=== PATIENT | female | born 1985 | race American Indian/Alaskan Native ===

== ENCOUNTER 2016-05-17 16:02 | Emergency (ER) | payer MEDICAID ==
[2016-05-17 17:24] VITALS: BP 120/66
[2016-05-17 19:09] LABS: Bacteria,Urine 1+ /HPF (Negative); Bilirubin,Urine NEG (Negative); Blood,Urine NEG (Negative); Ketones,Urine NEG (Negative); Leukocyte Esterase,Urine MOD (Negative); Mucus,Urine FEW /HPF; Nitrite,Urine NEG (Negative); Protein,Urine <15 mg/dL mg/dL (Negative); Urobilinogen,Urine < 2.0 mg/dL (<2.0)
--- NOTE | 2016-05-18 08:11 | ED Elopement Review ---
ED Pt Elopement review - Results review Lab results: Laboratory Tests 05/17/16 18:43 Urine Color Yellow Urine Turbidity Clear Urine pH 6.0 Ur Specific [place] 1.020 Urine Protein <15 mg/dl Urine Glucose (UA) Neg Urine Ketones Neg Urine Blood Neg Urine Nitrite Neg Urine Bilirubin Neg Urine Urobilinogen < 2.0 Ur Leukocyte Esterase Mod Urine WBC (Auto) 2.0 Urine RBC (Auto) 4.0 U Epithel Cells (Auto) 4.0 Urine Bacteria (Auto) 1+ Urine Mucus Few Urine HCG, Qual Negative - Call Back decision Pt Call Back Decision: No action required
== END 2016-05-17 18:11 | disposition left against medical advice (07) ==
LOC: ED 16:02
DX: R10.30 Lower abdominal pain, unspecified (principal); Z53.21 Procedure and treatment not carried out due to patient leaving prior to being seen by health care provider
CPT/HCPCS: 81001; 81025

== ENCOUNTER 2017-02-13 16:24 | Emergency (ER) | payer MEDICAID, OTHER ==
[2017-02-13 16:29] VITALS: BP 120/75
== END 2017-02-13 19:51 | disposition left against medical advice (07) ==
LOC: ED 16:24
DX: J02.9 Acute pharyngitis, unspecified (principal); Z53.21 Procedure and treatment not carried out due to patient leaving prior to being seen by health care provider

== ENCOUNTER 2017-10-21 04:10 | Emergency (ER) | payer SELFPAY ==
[2017-10-21 04:54] LABS: Hematocrit 35.1 % (30.3-42.9); Hemoglobin 11.6 gm/dl (10.1-14.3); Mean Corpuscular HGB Conc 33 % (30-34); Mean Corpuscular Hemoglobin 27 pg (28-32); Mean Corpuscular Volume 82 fl (79-97); Platelet Count 380 K/mm3 (140-440); Red Blood Count 4.28 M/mm3 (3.65-5.03); Red Cell Distribution Width 14.9 % (13.2-15.2)
[2017-10-21 04:55] LABS: Eosinophils % (Auto) 2.2 % (0.0-4.3); Lymphocytes % (Auto) 38.7 % (13.4-35.0); Monocytes % (Auto) 7.4 % (0.0-7.3)
[2017-10-21 04:56] LABS: Basophils % (Auto) 0.5 % (0.0-1.8); Eosinophils # (Auto) 0.2 K/mm3 (0.0-0.4); Lymphocytes # (Auto) 2.9 K/mm3 (1.2-5.4); Monocytes # (Auto) 0.6 K/mm3 (0.0-0.8)
[2017-10-21 06:15] LABS: Bilirubin,Urine NEG (Negative); Blood,Urine NEG (Negative); Color,Urine Yellow (Yellow); Mucus,Urine FEW /HPF; Protein,Urine <15 mg/dL mg/dL (Negative)
--- NOTE | 2017-10-21 06:22 | Ultrasound Report ---
FINAL REPORT EXAM: US OB < = 14 WEEKS FETUS HISTORY: vaginal bleeding TECHNIQUE: Transabdominal imaging was obtained of the pelvis with Doppler interrogation of the uterus FINDINGS: The uterus is anteverted measuring 13.2 cm x 7.5 cm x 9.8 cm. Within the uterus is a well-formed gestational sac which contains a yolk sac and pole. The crown-rump length of the pole is 32.7 mm corresponding to a 10 week 1 day IUP. The heart rate is 166 BPM. Adjacent to the gestational sac is a moderate sized subchorionic hemorrhage measuring 1.5 cm x 1.4 cm x 4.1 cm. Free fluid is not seen. The right ovary is normal size contour and echotexture measuring 4.1 cm x 1.7 cm x 1.7 cm. The left ovary is normal size contour and echotexture measuring 2.7 cm x 1.6 cm x 3.4 cm. IMPRESSION: Single viable IUP, 10 weeks 1 day. The heart rate is 166 BPM. Moderate size subchorionic hemorrhage measuring 1.5 cm x 1.4 cm x 4.1 cm. No evidence of free fluid. Normal-appearing ovaries.
[2017-10-21 06:23] VITALS: BP 109/63
--- NOTE | 2017-10-21 08:15 | Emergency Department Report ---
ED Female HPI - General Chief complaint: Vaginal Bleeding Stated complaint: CRAMPING/VAG BLEEDING Time Seen by Provider: 10/21/17 07:16 Source: patient Mode of arrival: Ambulatory Limitations: No Limitations - History of Present Illness Initial comments: 32-year-old female with LMP reported as 09/11/2017 presents to the hospitalist. The cramping and intermittent vaginal spotting 3 weeks. Patient states the blood is light and pink. She also is having white vaginal discharge without improvement after self treatment with [id number] antifungal suppositories. Patient now states vaginal discharge is malodorous and green in color. She denies fever, nausea, or vomiting. Positive test here which is a new diagnosis for the patient. This is her eighth and she has 3 living children and history of 4 miscarriages. She does not currently have a [employer] [employer] [employer] doctor. - Related Data Previous Rx's Medication Instructions Recorded Last Taken Type Doxylamine Succinate/Vit B6 1 each PO BID #30 tablet. 04/18/15 Unknown Rx [Toni Hubbard 10-10 mg Tablet] Miconazole Nitrate [Miconazole 7] 100 mg VG DAILY #7 supp.vag 10/21/17 Unknown Rx Vit-Fe Fumar-FA [ 1 tab PO QDAY #30 tablet 10/21/17 Unknown Rx Vitamin] metroNIDAZOLE [Flagyl] 500 mg PO Q12HR #14 tab 10/21/17 Unknown Rx Allergies Allergy/AdvReac Type Severity Reaction Status Date / Time No Known Allergies Allergy Verified 05/17/16 17:20 ED Review of Systems ROS: Stated complaint: CRAMPING/VAG BLEEDING Other details as noted in HPI Comment: All other systems reviewed and negative ED Past Medical Hx - Past Medical History Previous Medical History?: No Hx Hypertension: No Hx Congestive Heart Failure: No Hx Diabetes: No Hx Deep Vein Thrombosis: No Hx Sickle Cell Disease: No Hx Seizures: No Hx Asthma: No Hx COPD: No Hx HIV: No - Surgical History Past Surgical History?: Yes Additional Surgical History: d&c x 2 p miscarriages - Social History Smoking Status: Never Smoker Substance Use Type: None - Medications Home Medications: Home Medications Medication Instructions Recorded Confirmed Last Taken Type Doxylamine Succinate/Vit B6 1 each PO BID #30 tablet. 04/18/15 11/04/15 Unknown Rx [Toni Hubbard 10-10 mg Tablet] Miconazole Nitrate [Miconazole 7] 100 mg VG DAILY #7 supp.vag 10/21/17 Unknown Rx Vit-Fe Fumar-FA [ 1 tab PO QDAY #30 tablet 10/21/17 Unknown Rx Vitamin] metroNIDAZOLE [Flagyl] 500 mg PO Q12HR #14 tab 10/21/17 Unknown Rx ED Physical Exam - General Limitations: No Limitations - Other Other exam information: General: No limitations, patient is alert in no acute distress Head exam: Atraumatic, normocephalic Eyes exam: Normal appearance ENT: Moist mucous membrane Neck exam: Normal inspection, full range of motion, no meningismus nontender Respiratory exam: Clear to auscultation bilateral, no wheezes, rales, crackles Cardiovascular: Normal rate and rhythm, normal heart sounds Abdomen: Soft, nondistended, suprapubic tenderness, with normal bowel sounds, no rebound, or guarding : Malodorous vaginal discharge. No vaginal bleeding or spotting. No CMT or adnexal tenderness. Extremity: Full range of motion normal inspection no deformity Back: Normal Inspection, full range of motion, no tenderness Neurologic: Alert, oriented x3, cranial nerves intact, no motor or sensory deficit Psychiatric: normal affect, normal mood Skin: Warm, dry, intact ED Course Vital Signs 10/21/17 10/21/17 10/21/17 04:09 04:53 06:23 Temperature 98.0 F 98.2 F Pulse Rate 95 H 93 H Respiratory 20 16 16 Rate Blood Pressure 102/62 Blood Pressure 109/63 [Right] O2 Sat by Pulse 99 99 99 Oximetry ED Medical Decision Making - Lab Data Result diagrams: 10/21/17 04:20 Lab Results 10/21/17 10/21/17 10/21/17 Range/Units 04:20 04:20 04:20 WBC 7.6 (4.5-11.0) K/mm3 RBC 4.28 (3.65-5.03) M/mm3 Hgb 11.6 (10.1-14.3) gm/dl Hct 35.1 (30.3-42.9) % MCV 82 (79-97) fl MCH 27 L (28-32) pg MCHC 33 (30-34) % RDW 14.9 (13.2-15.2) % Plt Count 380 (140-440) K/mm3 Lymph % (Auto) 38.7 H (13.4-35.0) % Reeves % (Auto) 7.4 H (0.0-7.3) % Eos % (Auto) 2.2 (0.0-4.3) % Baso % (Auto) 0.5 (0.0-1.8) % Lymph # 2.9 (1.2-5.4) K/mm3 Reeves # 0.6 (0.0-0.8) K/mm3 Eos # 0.2 (0.0-0.4) K/mm3 Baso # 0.0 (0.0-0.1) K/mm3 Seg Neutrophils % 51.2 (40.0-70.0) % Seg Neutrophils # 3.9 (1.8-7.7) K/mm3 HCG, Quant 34352 H (0-4) mIU/mL Urine Color (Yellow) Urine Turbidity (Clear) Urine pH (5.0-7.0) Ur Specific [place] (1.003-1.030) Urine Protein (Negative) mg/dL Urine Glucose (UA) (Negative) mg/dL Urine Ketones (Negative) mg/dL Urine Blood (Negative) Urine Nitrite (Negative) Urine Bilirubin (Negative) Urine Urobilinogen (<2.0) mg/dL Ur Leukocyte Esterase (Negative) Urine WBC (Auto) (0.0-6.0) /HPF Urine RBC (Auto) (0.0-6.0) /HPF U Epithel Cells (Auto) (0-13.0) /HPF Urine Mucus /HPF Blood Type B POSITIVE Antibody Screen Negative 10/21/17 Range/Units 05:55 WBC (4.5-11.0) K/mm3 RBC (3.65-5.03) M/mm3 Hgb (10.1-14.3) gm/dl Hct (30.3-42.9) % MCV (79-97) fl MCH (28-32) pg MCHC (30-34) % RDW (13.2-15.2) % Plt Count (140-440) K/mm3 Lymph % (Auto) (13.4-35.0) % Reeves % (Auto) (0.0-7.3) % Eos % (Auto) (0.0-4.3) % Baso % (Auto) (0.0-1.8) % Lymph # (1.2-5.4) K/mm3 Reeves # (0.0-0.8) K/mm3 Eos # (0.0-0.4) K/mm3 Baso # (0.0-0.1) K/mm3 Seg Neutrophils % (40.0-70.0) % Seg Neutrophils # (1.8-7.7) K/mm3 HCG, Quant (0-4) mIU/mL Urine Color Yellow (Yellow) Urine Turbidity Clear (Clear) Urine pH 5.0 (5.0-7.0) Ur Specific [place] 1.028 (1.003-1.030) Urine Protein <15 mg/dl (Negative) mg/dL Urine Glucose (UA) Neg (Negative) mg/dL Urine Ketones Tr (Negative) mg/dL Urine Blood Neg (Negative) Urine Nitrite Neg (Negative) Urine Bilirubin Neg (Negative) Urine Urobilinogen 2.0 (<2.0) mg/dL Ur Leukocyte Esterase Neg (Negative) Urine WBC (Auto) 2.0 (0.0-6.0) /HPF Urine RBC (Auto) 2.0 (0.0-6.0) /HPF U Epithel Cells (Auto) 6.0 (0-13.0) /HPF Urine Mucus Few /HPF Blood Type Antibody Screen - Radiology Data Radiology results: report reviewed FINAL REPORT EXAM: US OB lt; = 14 WEEKS FETUS HISTORY: vaginal bleeding TECHNIQUE: Transabdominal imaging was obtained of the pelvis with Doppler interrogation of the uterus FINDINGS: The uterus is anteverted measuring 13.2 cm x 7.5 cm x 9.8 cm. Within the uterus is a well-formed gestational sac which contains a yolk sac and pole. The crown-rump length of the pole is 32.7 mm corresponding to a 10 week 1 day IUP. The heart rate is 166 BPM. Adjacent to the gestational sac is a moderate sized subchorionic hemorrhage measuring 1.5 cm x 1.4 cm x 4.1 cm. Free fluid is not seen. The right ovary is normal size contour and echotexture measuring 4.1 cm x 1.7 cm x 1.7 cm. The left ovary is normal size contour and echotexture measuring 2.7 cm x 1.6 cm x 3.4 cm. IMPRESSION: Single viable IUP, 10 weeks 1 day. The heart rate is 166 BPM. Moderate size subchorionic hemorrhage measuring 1.5 cm x 1.4 cm x 4.1 cm. No evidence of free fluid. Normal-appearing ovaries. - Medical Decision Making Positive IUP with subchorionic hemorrhage : Pelvic rest recommended patient's blood type is B+ therefore RhoGAM is not necessary H&H normal UA negative for infection Vaginal exam suggestive of bacterial vaginosis and yeast. Patient to be treated appropriately Gonorrhea and chlamydia are pending [facility] [employer] [facility] follow-up will be in current Patient also given subchorionic hemorrhage information obtained from the Internet since we do not have a discharge summary specific for subchorionic hemorrhage - Differential Diagnosis vaginitis, cervicitis, ectopic , subchorionic hemorrhage, miscarri Critical Care Time: No Critical care attestation.: If time is entered above; I have spent that time in minutes in the direct care of this critically ill patient, excluding procedure time. ED Disposition Clinical Impression: 10 weeks gestation of , Subchorionic hematoma in first trimester, Bacterial vaginitis, Yeast infection Disposition: DC-01 TO HOME OR SELFCARE Is pt being admited?: No Does the pt Need Aspirin: No Condition: Stable Instructions: Bacterial Vaginosis (ED), Threatened Miscarriage (ED), Vulvovaginal Candidiasis (ED) Additional Instructions: Take the medication as prescribed. Take Tylenol as needed for pain. Recommend no sex until cleared by [facility] [employer] since this may cause cramping and increase bleeding. 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 Return if symptoms worsen as indicated by your discharge instructions. Your gonorrhea and chlamydia tests are pending and take approximately 3-4 days result. You may obtain results in medical records with a photo ID. You may also obtain results through the follow-up doctor office via medical record request. Prescriptions: metroNIDAZOLE [Flagyl] 500 mg PO Q12HR #14 tab Miconazole Nitrate [Miconazole 7] 100 mg VG DAILY #7 supp.vag Vit-Fe Fumar-FA [ Vitamin] 1 tab PO QDAY #30 tablet Referrals: PRIMARY CARE, [Primary Care Provider] - 3-5 Days Forms: STI Treatment and Prevention Time of Disposition: 08:20
== END 2017-10-21 08:37 | disposition home or self-care (01) ==
LOC: ED 04:10
DX: O43.891 Other placental disorders, first trimester (principal); O23.591 Infection of other part of genital tract in pregnancy, first trimester; N76.0 Acute vaginitis; B96.89 Other specified bacterial agents as the cause of diseases classified elsewhere; Z3A.10 10 weeks gestation of pregnancy
CPT/HCPCS: 36415; 76801; 81001; 84702; 85025; 86850; 86900; 86901; 87210; 87591

== ENCOUNTER 2018-05-14 09:20 | Inpatient (IN) | payer MEDICAID ==
[2018-05-14] MEDS ORDERED: BRETHINE SUB-Q PRN ×2 (12:03→14:17)
[2018-05-14] MEDS ORDERED: SUBLIMAZE IV PRN (12:03)
[2018-05-14] MEDS ORDERED: BRETHINE IVP PRN ×2 (12:03→14:17)
[2018-05-14] MEDS ORDERED: ZOFRAN IV PRN ×2 (12:03→21:33)
[2018-05-14] MEDS ORDERED: STADOL IV PRN (12:03)
[2018-05-14] MEDS ORDERED: MINERAL OIL PO PRN ×2 (12:35→14:17)
[2018-05-14] MEDS ORDERED: XYLOCAINE 2% INFILTRATI ONE ×2 (13:00→14:17)
[2018-05-14] MEDS ORDERED: PITOCin/NS 20 UNIT/1000ML DRIP 20 UNITS/1,000 ML BAG IV SCH ×3 (13:00→22:00)
[2018-05-14] MEDS ORDERED: PITOCin/NS 30 UNIT/500ML 30 UNITS/500 ML BAG IV SCH ×4 (13:00→15:00)
[2018-05-14] MEDS ORDERED: LACTATED RINGERS 1,000 ML IV SCH ×2 (13:00→15:00)
[2018-05-14 13:15] LABS: Hematocrit 29.1 % (30.3-42.9); Hemoglobin 9.9 gm/dl (10.1-14.3); Mean Corpuscular HGB Conc 34 % (30-34); Mean Corpuscular Volume 79 fl (79-97); Platelet Count 343 K/mm3 (140-440)
[2018-05-14] MEDS ORDERED: PHENERGAN PO PRN ×2 (14:17→21:33)
--- NOTE | 2018-05-14 14:24 | History and Physical Report ---
History of Present Illness Date of examination: 05/14/18 Date of admission: 05/14/18 09:20 Chief complaint: Induction of labor History of present illness: Pt is a 33 yo BF EDC 05/17/18; EGA 39 4/7 weeks presents for induction of labor due to Morbid Obesity per MELBA. She received care at [facility] since and co-managed by MELBA. records are available and GBS is Negative. Past History Past Medical History: other (Obesity) Past Surgical History: no surgical history Social history: no significant social history, single - Obstetrical History Expected Date of Delivery: 05/17/18 Actual Gestation: 39 Week(s) 4 Day(s) : 8 Medications and Allergies Allergies Allergy/AdvReac Type Severity Reaction Status Date / Time No Known Allergies Allergy Verified 05/17/16 17:20 Home Medications Medication Instructions Recorded Confirmed Last Taken Type Doxylamine Succinate/Vit B6 1 each PO BID #30 tablet. 04/18/15 11/04/15 Unknown Rx [Toni Hubbard 10-10 mg Tablet] Miconazole Nitrate [Miconazole 7] 100 mg VG DAILY #7 supp.vag 10/21/17 Unknown Rx Vit-Fe Fumar-FA [ 1 tab PO QDAY #30 tablet 10/21/17 Unknown Rx Vitamin] metroNIDAZOLE [Flagyl] 500 mg PO Q12HR #14 tab 10/21/17 Unknown Rx Active Meds: Active Medications Butorphanol Tartrate (Stadol) 2 mg IV Q2H PRN PRN Reason: Pain , Severe (7-10) Ephedrine Sulfate (Ephedrine Sulfate) 10 mg IV Q2M PRN PRN Reason: Hypotension Fentanyl (Sublimaze) 100 mcg IV Q2H PRN PRN Reason: Labor Pain Lactated Ringer's (Lactated Ringers) 1,000 mls @ 125 mls/hr IV DIRECT SATISH Last Admin: 05/14/18 13:20 Dose: 125 mls/hr Documented by: Oxytocin/Sodium Chloride (Pitocin/Ns 20 Unit/1000ml Drip) 20 units in 1,000 mls @ 125 mls/hr IV DIRECT SATISH Oxytocin/Sodium Chloride (Pitocin/Ns 30 Unit/500ml) 30 units in 500 mls @ 1 mls/hr IV TITR SATISH; Protocol Oxytocin/Sodium Chloride (Pitocin/Ns 30 Unit/500ml) 30 units in 500 mls @ 0 mls/hr IV TITR SATISH; Protocol Mineral Oil (Mineral Oil) 30 ml PO QHS PRN PRN Reason: Constipation Ondansetron HCl (Zofran) 4 mg IV Q8H PRN PRN Reason: Nausea And Vomiting Terbutaline Sulfate (Brethine) 0.25 mg SUB-Q ONCE PRN PRN Reason: Hyperstimulation/Hypertonicity Terbutaline Sulfate (Brethine) 0.25 mg IVP ONCE PRN PRN Reason: Hyperstimulation/Hypertonicity Review of Systems All systems: negative - Vital Signs Vital signs: Vital Signs Temp Pulse Resp BP 97.6 F 81 20 108/58 05/14/18 10:07 05/14/18 10:07 05/14/18 10:07 05/14/18 10:07 Temp Pulse Resp BP Pulse Ox 97.6 F 80 20 136/58 05/14/18 10:07 05/14/18 14:17 05/14/18 10:07 05/14/18 14:17 - Physical Exam Breasts: Positive: deferred Cardiovascular: Regular rate Lungs: Positive: Clear to auscultation Abdomen: Positive: normal appearance Genitourinary (Female): Positive: normal external genitalia Vagina: Positive: normal moisture Uterus: Positive: enlarged Extremities: Positive: normal - Obstetrical Uterine Contraction Monitor Mode: External Cervical Dilatation: 2 (per nurse) Cervical Effacement Percentage: 50 (per nurse) station: -3 Uterine Contraction Pattern: Irregular Uterine Tone Measurement Phase: Contraction Uterine Contraction Intensity: Mild Results Result Diagrams: 05/14/18 13:01 Abnormal lab results 05/14/18 Range/Units 13:01 Hgb 9.9 L (10.1-14.3) gm/dl Hct 29.1 L (30.3-42.9) % MCH 27 L (28-32) pg All other labs normal. Assessment and Plan - Patient Problems (1) 39 weeks gestation of Onset Date: 05/14/18 Current Visit: Yes Status: Acute Plan to address problem: A: IUP @ 39 4/7 weeks Morbid Obesity P: Admit to L&D for pitocin induction of labor
[2018-05-14] MEDS ORDERED: TUCKS PAD TP PRN (21:33)
[2018-05-14] MEDS ORDERED: DULCOLAX PR PRN (21:33)
[2018-05-14] MEDS ORDERED: PHENERGAN PR PRN (21:33)
[2018-05-14] MEDS ORDERED: MILK OF MAGNESIA PO PRN (21:33)
[2018-05-14] MEDS ORDERED: LANSINOH TP PRN (21:33)
[2018-05-14] MEDS ORDERED: TYLENOL PO PRN (21:33)
[2018-05-14] MEDS ORDERED: BENADRYL PO PRN (21:33)
--- NOTE | 2018-05-14 21:37 | Anesthesia Consultation ---
Anesthesia Consult and Med Hx - Airway Anesthetic Teeth Evaluation: Good ROM Head & Neck: Adequate Mental/Hyoid Distance: Adequate Mallampati Class: Class II Intubation Access Assessment: Probably Good - Pulmonary Exam CTA: Yes - Cardiac Exam Cardiac Exam: RRR - Pre-Operative Health Status ASA Pre-Surgery Classification: ASA3 Proposed Anesthetic Plan: Epidural - Pulmonary Hx Smoking: No Hx Asthma: No Hx Respiratory Symptoms: No COPD: No Home Oxygen Therapy: No Hx Pneumonia: No Hx Sleep Apnea: No - Cardiovascular System Hx Hypertension: No Hx Coronary Artery Disease: No Hx Heart Attack/AMI: No Hx Angina: No Hx Percutaneous Transluminal Coronary Angioplasty (PTCA): No Hx Cardia Arrhythmia: No Hx Pacemaker: No Hx Internal Defibrillator: No Hx Valvular Heart Disease: No Hx Heart Murmur: No Hx Peripheral Vascular Disease: No - Central Nervous System Hx Seizures: No Hx Psychiatric Problems: No - Gastrointestinal Hx Gastroesophageal Reflux Disease: Yes - Endocrine Hx Renal Disease: No Hx End Stage Renal Disease: No Hx Cirrhosis: No Hx Liver Disease: No Hx Hypothyroidism: No Hx Hyperthyroidism: No - Hematic Hx Anemia: No Hx Sickle Cell Disease: No - Other Systems Hx Alcohol Use: Yes (1 sine cooler2-3 weeks ago)
--- NOTE | 2018-05-14 21:39 | Procedure Note ---
OB Delivery Note - Delivery Date of Delivery: 05/14/18 Surgeon: BLACK FLOYD Estimated blood loss: 200cc - Vaginal Delivery presentation: vertex Delivery position: OA Delivery induction: oxytocin Delivery augmentation: rupture of membranes, pitocin Delivery monitor: external FHT, external uterine Route of delivery: Delivery placenta: spontaneous Delivery cord: 3 umbilical vessels Episiotomy: none Delivery laceration: none Anesthesia: epidural Delivery comments: Infant delivered OA and placed on Mom's chest for [id number] bonding and delayed cord clamping, cut by Dad - A at 1 minute: 8 at 5 minutes: 9 Gender: Female (3671gms)
[2018-05-14] MEDS ORDERED: NARCAN 2 MG/2 ML IV PRN (21:41)
[2018-05-14] MEDS ORDERED: SODIUM CHLORIDE FLUSH SYRINGE 10 ML IV NR (22:00)
[2018-05-15] MEDS: IBUPROFEN PO SCH ×4 (00:27→23:03)
[2018-05-15] MEDS: NORCO 5/325 PO PRN ×3 (00:28→23:03)
[2018-05-15] MEDS ORDERED: PITOCin/NS 20 UNIT/1000ML DRIP 20 UNITS/1,000 ML BAG IV SCH (01:00)
[2018-05-15] MEDS ORDERED: PRENATAL VITAMIN PO SCH (10:00)
[2018-05-15] MEDS: FEOSOL PO SCH ×2 (10:07→21:56)
[2018-05-15] MEDS: COLACE PO SCH ×2 (10:07→21:56)
[2018-05-15 10:28] LABS: Hematocrit 27.8 % (30.3-42.9); Hemoglobin 9.1 gm/dl (10.1-14.3)
--- NOTE | 2018-05-15 13:00 | Progress Note ---
Assessment and Plan - Patient Problems (1) 39 weeks gestation of Onset Date: 05/14/18 Current Visit: Yes Status: Resolved (2) (normal spontaneous vaginal delivery) Onset Date: 05/15/18 Current Visit: Yes Status: Resolved Plan to address problem: A: s/p - PPD #1 Doing well Asymptomatic anemia - stable P: May go home tomorrow. Subjective - Subjective Date of service: 05/15/18 Principal diagnosis: s/p - PPD #1 Interval history: Pt is feeling well without complaints. Bleeding improved. Patient reports: appetite normal, voiding normally, pain well controlled, flatus, ambulating normally, no dizzy ambulation, no nauseated [place]: doing well, nursing well, bottle feeding Objective - Vital Signs Latest vital signs: Vital Signs Temp Pulse Resp BP Pulse Ox 05/15/18 11:54 98.1 F 61 20 109/45 100 05/15/18 10:08 20 05/15/18 08:13 97.8 F 67 20 104/58 99 05/15/18 04:56 98.4 F 76 20 110/60 100 05/15/18 00:28 18 05/15/18 00:27 18 05/15/18 00:12 98.0 F 75 18 102/39 05/14/18 22:41 70 125/56 05/14/18 22:01 72 102/58 05/14/18 21:51 80 100/51 05/14/18 21:41 83 102/50 05/14/18 21:14 84 168/72 05/14/18 19:10 76 135/74 05/14/18 18:10 74 104/59 05/14/18 17:11 81 96/52 05/14/18 16:58 82 116/70 05/14/18 16:41 88 87/47 05/14/18 16:31 87 109/53 05/14/18 16:11 90 87/48 05/14/18 15:40 89 110/53 05/14/18 15:20 98.0 F 20 05/14/18 14:17 80 136/58 Intake and Output 05/14/18 05/15/18 05/15/18 22:59 06:59 14:59 Intake Total 27.333 480 120 Output Total 300 Balance 27.333 180 120 Intake: IV 27.333 PITOCin/NS 30 UNIT/500ML 27.333 30 units In 500 ml @ Per Protocol IV TITR SATISH Rx#: [id number] Oral 120 Intake, Free Water 480 Output: Urine 300 Void 300 Other: Total, Intake Amount 120 Total, Output Amount 300 # Voids Void 5 1 Estimated Blood Loss 200 - Exam Breasts: Present: deferred Abdomen: Present: normal appearance, soft Uterus: Present: normal, firm, fundal height below umbilicus Extremities: Present: normal - Labs Labs: Abnormal lab results 05/14/18 05/15/18 Range/Units 13:01 10:11 Hgb 9.9 L 9.1 L (10.1-14.3) gm/dl Hct 29.1 L 27.8 L (30.3-42.9) % MCH 27 L (28-32) pg Laboratory Tests 05/14/18 05/14/18 05/15/18 12:52 13:01 10:11 WBC 7.6 RBC 3.70 Hgb 9.9 L 9.1 L Hct 29.1 L 27.8 L MCV 79 MCH 27 L MCHC 34 RDW 15.0 Plt Count 343 Blood Type B POSITIVE Antibody Screen Negative
--- NOTE | 2018-05-15 13:08 | Discharge Summary ---
Providers - Providers Date of Admission: 05/14/18 09:20 Date of discharge: 05/16/18 Attending physician: BLACK FLOYD Primary care physician: ELISHA GILL MD Hospitalization Reason for admission: induction of labor, IUP at term, other (Morbid obesity) Delivery: Episiotomy: none Laceration: none Other procedures: none complications: none Discharge diagnosis: IUP at term delivered [place] baby: female Hospital course: Unremarkable. Condition at discharge: Good Disposition: DC-01 TO HOME OR SELFCARE - Discharge Diagnoses (1) 39 weeks gestation of Status: Resolved (2) (normal spontaneous vaginal delivery) Status: Resolved Plan - Discharge Medications Prescriptions: Ferrous Sulfate [Feosol 325 MG tab] 325 mg PO BID #60 tablet Ibuprofen [Motrin 600 MG tab] 600 mg PO Q6H #30 tablet Vit-Fe Fumar-FA [ Vitamin] 1 each PO QDAY #30 tablet - Provider Discharge Summary Activity: routine, no sex for 6 weeks, no heavy lifting 4 weeks, no strenuous exercise Diet: routine Instructions: routine Additional instructions: [] Smoking cessation referral if applicable(refer to patient education folder for contact #) [] Refer to [facility]'s [facility] Booklet Call your doctor immediately for: * Fever > 100.5 * Heavy vaginal bleeding ( >1 pad per hour) * Severe persistent headache * Shortness of breath * Reddened, hot, painful area to leg or breast * Drainage or odor from incision. * Keep incision clean and dry at all times and follow doctor's instructions regarding bathing/showering - Follow up plan Follow up: PRIMARY CARE, [Primary Care Provider] - 6 Weeks BLACK FLOYD MD [Staff Physician] - 6 Weeks AISHA CEDEÑO CNM [Advanced Practice Nurse] - 6 Weeks
[2018-05-15] MEDS ORDERED: M-M-R II VACCINE SUB-Q ONE (21:33)
[2018-05-15] MEDS ORDERED: BOOSTRIX IM ONE (21:33)
[2018-05-16] MEDS: IBUPROFEN PO SCH ×2 (05:13→16:21)
[2018-05-16] MEDS: NORCO 5/325 PO PRN ×2 (05:14→16:19)
[2018-05-16] MEDS ORDERED: BOOSTRIX IM ONE (06:00)
[2018-05-16 16:49] VITALS: BP 127/67
== END 2018-05-16 17:30 | disposition home or self-care (01) | DRG 775 ==
LOC: LD 09:20 → OB 23:54
PROVIDERS: ADMIT Obstetrics & Gynecology; ATTEND Obstetrics & Gynecology
PROC: 10E0XZZ Delivery of Products of Conception, External Approach (ICD-10-PCS; principal; 2018-05-14)
PROC: 3E033VJ Introduction of Other Hormone into Peripheral Vein, Percutaneous Approach (ICD-10-PCS; 2018-05-14)
PROC: 3E0R3BZ Introduction of Anesthetic Agent into Spinal Canal, Percutaneous Approach (ICD-10-PCS; 2018-05-14)
PROC: 00HU33Z Insertion of Infusion Device into Spinal Canal, Percutaneous Approach (ICD-10-PCS; 2018-05-14)
PROC: 3E0234Z Introduction of Serum, Toxoid and Vaccine into Muscle, Percutaneous Approach (ICD-10-PCS; 2018-05-15)
DX: O99.214 Obesity complicating childbirth (principal); Z37.0 Single live birth; O99.62 Diseases of the digestive system complicating childbirth; K21.9 Gastro-esophageal reflux disease without esophagitis; E66.01 Morbid (severe) obesity due to excess calories; Z3A.39 39 weeks gestation of pregnancy; Z23 Encounter for immunization; O99.02 Anemia complicating childbirth; D64.9 Anemia, unspecified
CPT/HCPCS: 36415; 85014; 85018; 85027; 86592; 86850; 86900; 86901; 90471; 90715; G0378; J2590; J3010; J7120

== ENCOUNTER 2019-01-05 20:51 | Emergency (ER) | payer MEDICAID ==
--- NOTE | 2019-01-05 21:21 | Emergency Department Report ---
Blank Doc - Documentation Documentation: 33-year-old female that presents with fall with pelvic pain and some vaginal b leeding. Denies any other trauma or injuries. This initial assessment/diagnostic orders/clinical plan/treatment(s) is/are subject to change based on patient's health status, clinical progression and re- assessment by fellow clinical providers in the ED. Further treatment and workup at subsequent clinical providers discretion. Patient/guardians urged not to elope from the ED as their condition may be serious if not clinically assessed and managed. Initial orders include: 1- Patient sent to [facility] for further evaluation and treatment 2- UA 3- labs 4- US OB
[2019-01-05 21:49] LABS: Bacteria,Urine 1+ /HPF (Negative); Bilirubin,Urine NEG (Negative); Blood,Urine NEG (Negative); Color,Urine Yellow (Yellow); Mucus,Urine FEW /HPF; Protein,Urine <15 mg/dL mg/dL (Negative); Urobilinogen,Urine < 2.0 mg/dL (<2.0)
[2019-01-05 21:54] LABS: Basophils # (Auto) 0.1 K/mm3 (0.0-0.1); Basophils % (Auto) 0.7 % (0.0-1.8); Eosinophils # (Auto) 0.2 K/mm3 (0.0-0.4); Eosinophils % (Auto) 2.3 % (0.0-4.3); Hematocrit 33.2 % (30.3-42.9); Hemoglobin 11.1 gm/dl (10.1-14.3); Lymphocytes # (Auto) 1.7 K/mm3 (1.2-5.4); Lymphocytes % (Auto) 22.7 % (13.4-35.0); Mean Corpuscular HGB Conc 33 % (30-34); Mean Corpuscular Volume 82 fl (79-97); Monocytes # (Auto) 0.4 K/mm3 (0.0-0.8); Monocytes % (Auto) 5.5 % (0.0-7.3); Platelet Count 340 K/mm3 (140-440); Red Blood Count 4.06 M/mm3 (3.65-5.03); Red Cell Distribution Width 15.3 % (13.2-15.2)
--- NOTE | 2019-01-05 23:15 | Ultrasound Report ---
OB ultrasound FINDINGS: Single fetus is identified in transverse presentation with head to the maternal left. heart rate is 152 bpm. Placenta is anterior. Cervix measures 5.4 cm in length and is closed. Appropr iate measurements reveal an MA of 17 weeks 1 day for an DEMAR of 06/14/2019. This correlates well with t he clinical dates. Amniotic fluid volume appears adequate. No gross anomalies are seen. No abnormalit y demonstrated. Signer Name: Luan Eaton MD Signed: 01/05/2019 11:11 PM Workstation Name: [id number]
--- NOTE | 2019-01-06 00:30 | Emergency Department Report ---
ED Abdominal Pain HPI - General Chief Complaint: Fall Stated Complaint: FALL,16 WKS PREG,SPOTTING BLOOD Time Seen by Provider: 01/05/19 21:20 Source: patient Mode of arrival: Ambulatory Limitations: No Limitations - History of Present Illness Initial Comments: Patient's a 33-year-old -Algerian female 17 weeks' , pt is G 9, G 4, A4. Patient states she slipped and fell stepping out of the shower today. there was no loc no back or neck pain, however she did start to experience some abdominal cramping and saw pink to toilet paper after voiding. There is no vaginal bleeding at this time, there is intermittent abdominal cramping. Symptom s are exacerbated by movement, symptoms are relieved by rest. pt states she justs wants to make sure baby is ok. Complaint: abdominal pain Onset/Timin -: hour(s) Location: LLQ, RLQ Radiation: suprapubic Severity: moderate Severity scale (0 -10): 3 Quality: cramping Consistency: intermittent Improves With: nothing Worsens With: movement Context: other (glf ) Associated Symptoms: hematuria. denies: nausea, vomiting, dysuria - Related Data LMP Date: 08/10/18 Previous Rx's Medication Instructions Recorded Last Taken Type Doxylamine Succinate/Vit B6 1 each PO BID #30 tablet. 04/18/15 Unknown Rx [Toni Hubbard 10-10 mg Tablet] Miconazole Nitrate [Miconazole 7] 100 mg VG DAILY #7 supp.vag 10/21/17 Unknown Rx Vit-Fe Fumar-FA [ 1 tab PO QDAY #30 tablet 10/21/17 Unknown Rx Vitamin] metroNIDAZOLE [Flagyl] 500 mg PO Q12HR #14 tab 10/21/17 Unknown Rx Ferrous Sulfate [Feosol 325 MG tab] 325 mg PO BID #60 tablet 05/15/18 Unknown Rx Ibuprofen [Motrin 600 MG tab] 600 mg PO Q6H #30 tablet 05/15/18 Unknown Rx Vit-Fe Fumar-FA [ 1 each PO QDAY #30 tablet 05/15/18 Unknown Rx Vitamin] Acetaminophen [Acetaminophen TAB] 650 mg PO Q6HR PRN #30 tablet 01/06/19 Unknown Rx cephALEXin [Keflex] 500 mg PO BID 10 Days #20 cap 01/06/19 Unknown Rx Allergies Allergy/AdvReac Type Severity Reaction Status Date / Time No Known Allergies Allergy Verified 05/17/16 17:20 ED Review of Systems ROS: Stated complaint: FALL,16 WKS PREG,SPOTTING BLOOD Other details as noted in HPI Constitutional: denies: chills, fever Eyes: denies: eye pain, eye discharge, vision change ENT: denies: ear pain, throat pain Respiratory: denies: cough, shortness of breath, wheezing Cardiovascular: denies: chest pain, palpitations Endocrine: no symptoms reported Gastrointestinal: abdominal pain. denies: nausea, vomiting, hematemesis, melena, hematochezia Genitourinary: dysuria, frequency, hematuria. denies: discharge Musculoskeletal: denies: back pain, joint swelling, arthralgia Skin: denies: rash, lesions Neurological: denies: headache, weakness, paresthesias Psychiatric: denies: anxiety, depression Hematological/Lymphatic: denies: easy bleeding, easy bruising ED Past Medical Hx - Past Medical History Previous Medical History?: Yes Hx Hypertension: No Hx Heart Attack/AMI: No Hx Congestive Heart Failure: No Hx Diabetes: No Hx Deep Vein Thrombosis: No Hx Liver Disease: No Hx Renal Disease: No Hx Sickle Cell Disease: No Hx Seizures: No Hx Asthma: No Hx COPD: No Hx HIV: No - Surgical History Past Surgical History?: Yes Hx Pacemaker: No Hx Internal Defibrillator: No Additional Surgical History: d&c x 2 p miscarriages - Social History Smoking Status: Never Smoker Substance Use Type: None - Medications Home Medications: Home Medications Medication Instructions Recorded Confirmed Last Taken Type Doxylamine Succinate/Vit B6 1 each PO BID #30 tablet. 04/18/15 11/04/15 Unknown Rx [Toni Hubbard 10-10 mg Tablet] Miconazole Nitrate [Miconazole 7] 100 mg VG DAILY #7 supp.vag 10/21/17 Unknown Rx Vit-Fe Fumar-FA [ 1 tab PO QDAY #30 tablet 10/21/17 Unknown Rx Vitamin] metroNIDAZOLE [Flagyl] 500 mg PO Q12HR #14 tab 10/21/17 Unknown Rx Ferrous Sulfate [Feosol 325 MG tab] 325 mg PO BID #60 tablet 05/15/18 Unknown Rx Ibuprofen [Motrin 600 MG tab] 600 mg PO Q6H #30 tablet 05/15/18 Unknown Rx Vit-Fe Fumar-FA [ 1 each PO QDAY #30 tablet 05/15/18 Unknown Rx Vitamin] Acetaminophen [Acetaminophen TAB] 650 mg PO Q6HR PRN #30 tablet 01/06/19 Unknown Rx cephALEXin [Keflex] 500 mg PO BID 10 Days #20 cap 01/06/19 Unknown Rx ED Physical Exam - General Limitations: No Limitations General appearance: alert, in no apparent distress - Head Head exam: Present: atraumatic, normocephalic - Eye Eye exam: Present: normal appearance, PERRL, EOMI Pupils: Present: normal accommodation - ENT ENT exam: Present: mucous membranes moist - Neck Neck exam: Present: normal inspection, full ROM. Absent: tenderness, men ingismus, lymphadenopathy, thyromegaly - Expanded Neck Exam Expanded Neck exam: Absent: tenderness (no posterior vertebral point tenderness rom intact and unrestricted to all jeronimo.), midline deformity, anterior neck swelling, thyroid mass, carotid bruit, tracheal deviation - Respiratory Respiratory exam: Present: normal lung sounds bilaterally (will call his is January 05 the sedimentation rate is 7. No low positive mild volume). Absent: respiratory distress, wheezes, stridor, chest wall tenderness - Cardiovascular Cardiovascular Exam: Present: regular rate, normal rhythm. Absent: systolic murmur, diastolic murmur, rubs, gallop - GI/Abdominal GI/Abdominal exam: Present: soft, normal bowel sounds. Absent: distended, tenderness, guarding, rebound, rigid, bruit, hernia - Rectal Rectal exam: Present: deferred - External exam: Present: other (declined. ) - Extremities Exam Extremities exam: Present: normal inspection (noticed by Dilaudid nose packed with gi milligrams daily, comminuted right), full ROM, normal capillary refill. Absent: tenderness, pedal edema, joint swelling - Back Exam Back exam: Present: normal inspection, full ROM. Absent: tenderness, CVA tenderness (R), CVA tenderness (L), muscle spasm, paraspinal tenderness, vertebral tenderness, rash noted - Neurological Exam Neurological exam: Present: alert, oriented X3, CN II-XII intact, normal gait, reflexes normal. Absent: motor sensory deficit - Psychiatric Psychiatric exam: Present: normal affect, normal mood - Skin Skin exam: Present: warm, dry, intact, normal color. Absent: rash ED Course Vital Signs 01/05/19 21:03 Temperature 98.4 F Pulse Rate 84 Respiratory 16 Rate Blood Pressure 131/64 O2 Sat by Pulse 99 Oximetry ED Medical Decision Making - Lab Data Result diagrams: 01/05/19 21:37 Labs 01/05/19 01/05/19 01/05/19 21:37 21:37 22:40 WBC 7.6 RBC 4.06 Hgb 11.1 Hct 33.2 MCV 82 MCH 27 L MCHC 33 RDW 15.3 H Plt Count 340 Lymph % (Auto) 22.7 [place] % (Auto) 5.5 Eos % (Auto) 2.3 Baso % (Auto) 0.7 Lymph # 1.7 [place] # 0.4 Eos # 0.2 Baso # 0.1 Seg Neutrophils % 68.8 Seg Neutrophils # 5.3 HCG, Quant 99413 H Urine Color Urine Turbidity Urine pH Ur Specific [place] Urine Protein Urine Glucose (UA) Urine Ketones Urine Blood Urine Nitrite Urine Bilirubin Urine Urobilinogen Ur Leukocyte Esterase Urine WBC (Auto) Urine RBC (Auto) U Epithel Cells (Auto) Urine Bacteria (Auto) Urine Mucus Blood Type B POSITIVE 01/05/19 Unknown WBC RBC Hgb Hct MCV MCH MCHC RDW Plt Count Lymph % (Auto) [place] % (Auto) Eos % (Auto) Baso % (Auto) Lymph # [place] # Eos # Baso # Seg Neutrophils % Seg Neutrophils # HCG, Quant Urine Color Yellow Urine Turbidity Slightly-cloudy Urine pH 7.0 Ur Specific [place] 1.015 Urine Protein <15 mg/dl Urine Glucose (UA) Neg Urine Ketones Neg Urine Blood Neg Urine Nitrite Pos Urine Bilirubin Neg Urine Urobilinogen < 2.0 Ur Leukocyte Esterase Sm Urine WBC (Auto) 2.0 Urine RBC (Auto) 2.0 U Epithel Cells (Auto) 5.0 Urine Bacteria (Auto) 1+ Urine Mucus Few Blood Type - Radiology Data Radiology results: report reviewed, image reviewed Ordering Physician: CARMINA DURON NP Date of Service: 01/05/19 Procedure(s): US OB >= 14 weeks Fetus Accession Number(s): [id number] cc: CARMINA DURON NP OB ultrasound FINDINGS: Single fetus is identified in transverse presentation with head to the maternal left. heart rate is 152 bpm. Placenta is anterior. Cervix measures 5.4 cm in length and is closed. Appropriate measurements reveal an MA of 17 weeks 1 day for an DEMAR of 06/14/2019. This correlates well with the clinical dates. Amniotic fluid volume appears adequate. No gross anomalies are seen. No abnormality demonstrated. Signer Name: Luan Eaton MD Signed: 01/05/2019 11:11 PM Workstation Name: [id number] Transcribed By: ROSIO Dictated By: Luan Eaton MD Electronically Authenticated By: Luan Eaton MD Signed Date/Time: 01/05/192310 DD/ 08 TD/TT: - Medical Decision Making Single IUP, 17 weeks and 1, day, FHR: 152 Bpm, hc, blood type: Bpos , UA pos for nitrates, small leuk, wbc, pt denies concern for STI, There are no other injuries no neck pain no back pain, no abrasions, lacerations, no bleeding, plan: Dx Fall, Abd pain during , UTI , pt will follow up with OBGYN in 2-3 days. pt will return to ed if symptoms worsen. Critical care attestation.: If time is entered above; I have spent that time in minutes in the direct care of this critically ill patient, excluding procedure time. ED Disposition Clinical Impression: Abdominal pain during Qualifiers: Trimester: second trimester Qualified Code(s): O26.892 - Other specified related conditions, second trimester; R10.9 - Unspecified abdominal pain UTI (urinary tract infection) during Qualifiers: Trimester: second trimester Qualified Code(s): O23.42 - Unspecified infection of urinary tract in , second trimester Disposition: - TO HOME OR SELFCARE Is pt being admited?: No Does the pt Need Aspirin: No Condition: Stable Instructions: Urinary Tract Infection in Women (ED), Abdominal Pain in (ED) Prescriptions: Acetaminophen [Acetaminophen TAB] 650 mg PO Q6HR PRN #30 tablet PRN Reason: Pain cephALEXin [Keflex] 500 mg PO BID 10 Days #20 cap Referrals: [facility] [Provider Group] - 3-5 Days Forms: Work/School Release Form(ED) Time of Disposition: 00:46
[2019-01-06 00:49] VITALS: BP 115/66
== END 2019-01-06 00:48 | disposition home or self-care (01) ==
LOC: ED 20:51
DX: O23.42 Unspecified infection of urinary tract in pregnancy, second trimester (principal); Z3A.17 17 weeks gestation of pregnancy; Z79.899 Other long term (current) drug therapy
CPT/HCPCS: 36415; 76805; 81001; 84702; 85025; 86900; 86901; 99284

== ENCOUNTER 2019-05-01 17:26 | Outpatient (CLI) | payer SELFPAY ==
[2019-05-01] MEDS ORDERED: LACTATED RINGERS 1,000 ML IV ONE (18:30)
[2019-05-01 18:48] LABS: Bacteria,Urine 4+ /HPF (Negative); Bilirubin,Urine NEG (Negative); Blood,Urine NEG (Negative); Color,Urine Yellow (Yellow); Protein,Urine <15 mg/dL mg/dL (Negative); Urobilinogen,Urine < 2.0 mg/dL (<2.0)
[2019-05-01] MEDS ORDERED: AMPICILLIN 2 GM in SODIUM CHLORIDE 0.9% 50 ML IV ONE (19:35)
[2019-05-01] MEDS ORDERED: AMPICILLIN/NS 2 GM/100 ML 2 GM/100 ML BAG IV ONE ×2 (20:15→23:59)
[2019-05-01] MEDS ORDERED: AMPICILLIN 1 GM in SODIUM CHLORIDE 0.9% 50 ML IV ONE (23:59)
[2019-05-02] MEDS ORDERED: AMPICILLIN 1 GM in SODIUM CHLORIDE 0.9% 50 ML IV ONE
[2019-05-02 00:54] VITALS: BP 110/54
== END 2019-05-02 01:32 | disposition home or self-care (01) ==
LOC: TRG 17:26 → LD 20:30 → TRG 05-02 01:32
PROVIDERS: ATTEND Obstetrics & Gynecology
DX: O42.913 Preterm premature rupture of membranes, unspecified as to length of time between rupture and onset of labor, third trimester (principal); O26.893 Other specified pregnancy related conditions, third trimester; R25.2 Cramp and spasm; O47.03 False labor before 37 completed weeks of gestation, third trimester; Z3A.33 33 weeks gestation of pregnancy
CPT/HCPCS: 81001; 96361; 96365; 96366; J0290; J7120

== ENCOUNTER 2019-06-01 09:29 | Inpatient (IN) | payer OTHER ==
[2019-06-01] MEDS ORDERED: LACTATED RINGERS 1,000 ML IV ONE (10:32)
[2019-06-01] MEDS ORDERED: fentaNYL 100 MCG/2 ML INJ IV PRN (11:09)
[2019-06-01] MEDS ORDERED: MINERAL OIL 30 ML ORAL LIQD PO PRN ×2 (11:09→11:22)
[2019-06-01] MEDS ORDERED: TERBUTALINE 1 MG/1 ML INJ SUB-Q PRN ×2 (11:09→11:22)
[2019-06-01] MEDS ORDERED: AMPICILLIN/NS 2 GM/100 ML 2 GM/100 ML BAG IV ONE (11:09)
[2019-06-01] MEDS ORDERED: ePHEDrine SULFATE 50 MG/1 ML INJ IV PRN ×2 (11:09→11:22)
[2019-06-01] MEDS ORDERED: ONDANSETRON 4 MG/2 ML INJ IV PRN ×2 (11:09→18:23)
[2019-06-01] MEDS ORDERED: BUTORPHANOL 2 MG/1 ML INJ IV PRN (11:09)
[2019-06-01] MEDS ORDERED: LIDOCAINE (2%) 20 MG/1 ML VIAL 20 ML MDV INFILTRATI ONE ×2 (11:09→11:22)
[2019-06-01] MEDS ORDERED: TERBUTALINE 1 MG/1 ML INJ IVP PRN ×2 (11:09→11:22)
--- NOTE | 2019-06-01 11:26 | History and Physical Report ---
History of Present Illness Date of examination: 06/01/19 Chief complaint: Labor History of present illness: Pt is a 34yo BF EDC 06/14/19; EGA 38 1/7 weeks presents to [facility] L&D complaining of SROM clear fluid @ 0500 followed by irregular contractions. She did not receive care with this , but course was unremarkable. I delivered her last baby here 05/14/18. GBS is unknown. Past History Past Medical History: no pertinent history Past Surgical History: no surgical history Family/Genetic History: none Social history: no significant social history, single - Obstetrical History Expected Date of Delivery: 06/14/19 Actual Gestation: 38 Week(s) 1 Day(s) : 8 Medications and Allergies Allergies Allergy/AdvReac Type Severity Reaction Status Date / Time No Known Allergies Allergy Verified 06/01/19 09:39 Home Medications Medication Instructions Recorded Confirmed Last Taken Type Doxylamine Succinate/Vit B6 1 each PO BID #30 tablet. 04/18/15 11/04/15 Unknown Rx [Toni Hubbard 10-10 mg Tablet] Miconazole Nitrate [Miconazole 7] 100 mg VG DAILY #7 supp.vag 10/21/17 Unknown Rx Vit-Fe Fumar-FA [ 1 tab PO QDAY #30 tablet 10/21/17 Unknown Rx Vitamin] metroNIDAZOLE [Flagyl] 500 mg PO Q12HR #14 tab 10/21/17 Unknown Rx Ferrous Sulfate [Feosol 325 MG tab] 325 mg PO BID #60 tablet 05/15/18 Unknown Rx Ibuprofen [Motrin 600 MG tab] 600 mg PO Q6H #30 tablet 05/15/18 Unknown Rx Vit-Fe Fumar-FA [ 1 each PO QDAY #30 tablet 05/15/18 Unknown Rx Vitamin] Acetaminophen [Acetaminophen TAB] 650 mg PO Q6HR PRN #30 tablet 01/06/19 Unknown Rx cephALEXin [Keflex] 500 mg PO BID 10 Days #20 cap 01/06/19 Unknown Rx Active Meds: Active Medications Butorphanol Tartrate (Stadol) 2 mg IV Q2H PRN PRN Reason: Pain , Severe (7-10) Ephedrine Sulfate (Ephedrine Sulfate) 10 mg IV Q2M PRN PRN Reason: Hypotension Fentanyl (Sublimaze) 100 mcg IV Q2H PRN PRN Reason: Labor Pain Lactated Ringer's (Lactated Ringers) 1,000 mls @ 125 mls/hr IV TITRATE ONE Stop: 06/01/19 18:31 Last Admin: 06/01/19 10:43 Dose: 125 mls/hr Documented by: Oxytocin/Sodium Chloride (Pitocin/Ns 20 Unit/1000ml Drip) 20 units in 1,000 mls @ 125 mls/hr IV DIRECT SATISH Lactated Ringer's (Lactated Ringers) 1,000 mls @ 125 mls/hr IV DIRECT SATISH Ampicillin Sodium (Ampicillin/Ns 2 Gm/100 Ml) 2 gm in 100 mls @ 100 mls/hr IV ONCE ONE; Protocol Stop: 06/01/19 12:08 Ampicillin Sodium (Ampicillin/Ns 1 Gm/50 Ml) 1 gm in 50 mls @ 100 mls/hr IV Q4H SATISH; Protocol Mineral Oil (Mineral Oil) 30 ml PO QHS PRN PRN Reason: Constipation Ondansetron HCl (Zofran) 4 mg IV Q8H PRN PRN Reason: Nausea And Vomiting Terbutaline Sulfate (Brethine) 0.25 mg SUB-Q ONCE PRN PRN Reason: Hyperstimulation/Hypertonicity Terbutaline Sulfate (Brethine) 0.25 mg IVP ONCE PRN PRN Reason: Hyperstimulation/Hypertonicity Review of Systems All systems: negative - Vital Signs Vital signs: Vital Signs Pulse BP 90 104/51 06/01/19 09:47 06/01/19 09:47 Temp Pulse Resp BP Pulse Ox 90 104/51 06/01/19 09:47 06/01/19 09:47 - Physical Exam Breasts: Positive: deferred Cardiovascular: Regular rate Abdomen: Positive: normal appearance Genitourinary (Female): Positive: normal external genitalia Uterus: Positive: enlarged Extremities: Positive: normal - Obstetrical FHR: category 1 Uterine Contraction Monitor Mode: External Cervical Dilatation: 5 (per nurse) Cervical Effacement Percentage: 70 (per nurse) station: -2 Uterine Contraction Pattern: Irregular Uterine Tone Measurement Phase: Contraction Uterine Contraction Intensity: Mild Results Result Diagrams: 06/01/19 10:26 All other labs normal. Assessment and Plan - Patient Problems (1) 38 weeks gestation of Onset Date: 06/01/19 Current Visit: Yes Status: Acute Plan to address problem: A: IUP @ 38 1/7 weeks in labor No care Anemia P: Admit to L&D for expectant vaginal delivery Obtain labs IV Ampicillin (2) No care in current in third trimester Onset Date: 06/01/19 Current Visit: Yes Status: Acute (3) Chronic blood loss anemia Onset Date: 06/01/19 Current Visit: Yes Status: Acute
[2019-06-01 11:27] LABS: Basophils % (Auto) 0.2 % (0.0-1.8); Eosinophils # (Auto) 0.1 K/mm3 (0.0-0.4); Eosinophils % (Auto) 1.2 % (0.0-4.3); Hematocrit 28.4 % (30.3-42.9); Hemoglobin 9.3 gm/dl (10.1-14.3); Lymphocytes # (Auto) 1.6 K/mm3 (1.2-5.4); Lymphocytes % (Auto) 19.3 % (13.4-35.0); Mean Corpuscular HGB Conc 33 % (30-34); Mean Corpuscular Volume 77 fl (79-97); Monocytes # (Auto) 0.6 K/mm3 (0.0-0.8); Monocytes % (Auto) 7.7 % (0.0-7.3); Platelet Count 318 K/mm3 (140-440); Red Blood Count 3.67 M/mm3 (3.65-5.03); Red Cell Distribution Width 14.9 % (13.2-15.2)
[2019-06-01 11:33] LABS: Amphetamine Screen,Urine PRESUMPTIVE NEGATIVE; Benzodiazepines Screen,Urine PRESUMPTIVE NEGATIVE; Cannabinoid Screen,Urine PRESUMPTIVE NEGATIVE; Cocaine Screen,Urine PRESUMPTIVE NEGATIVE; Methadone Screen,Urine PRESUMPTIVE NEGATIVE; Opiate Screen,Urine PRESUMPTIVE NEGATIVE
[2019-06-01 11:36] LABS: Bacteria,Urine 1+ /HPF (Negative); Bilirubin,Urine NEG (Negative); Blood,Urine SM (Negative); Color,Urine Yellow (Yellow); Mucus,Urine 1+ /HPF; Protein,Urine <15 mg/dL mg/dL (Negative); Urobilinogen,Urine < 2.0 mg/dL (<2.0)
[2019-06-01] MEDS ORDERED: OXYTOCIN DRIP 30 UNITS/500 ML BAG IV SCH (12:00)
[2019-06-01] MEDS ORDERED: OXYTOCIN 20 UNIT/1000ML DRIP 20 UNITS/1,000 ML BAG IV SCH ×2 (12:00→19:00)
[2019-06-01] MEDS ORDERED: LACTATED RINGERS 1,000 ML IV SCH (12:00)
[2019-06-01] MEDS: LACTATED RINGERS 1,000 ML IV SCH ×2 (14:32→17:22)
[2019-06-01] MEDS ORDERED: AMPICILLIN/NS 1 GM/50 ML 1 GM/50 ML BAG IV SCH (15:11)
[2019-06-01] MEDS ORDERED: DEXMEDETOMIDINE 200 MCG/2 ML VIAL IV ONE (17:33)
--- NOTE | 2019-06-01 17:55 | Anesthesia Consultation ---
Anesthesia Consult and Med Hx Date of service: 06/01/19 - Airway Anesthetic Teeth Evaluation: Good ROM Head & Neck: Adequate Mental/Hyoid Distance: Adequate Mallampati Class: Class II Intubation Access Assessment: Probably Good - Pulmonary Exam CTA: Yes - Cardiac Exam Cardiac Exam: RRR - Pre-Operative Health Status ASA Pre-Surgery Classification: ASA3 Proposed Anesthetic Plan: Epidural - Pulmonary Hx Smoking: No Hx Asthma: No Hx Respiratory Symptoms: No COPD: No Hx Pneumonia: No Hx Sleep Apnea: No - Cardiovascular System Hx Hypertension: No Hx Coronary Artery Disease: No Hx Heart Attack/AMI: No Hx Angina: No Hx Percutaneous Transluminal Coronary Angioplasty (PTCA): No Hx Cardia Arrhythmia: No Hx Pacemaker: No Hx Internal Defibrillator: No Hx Valvular Heart Disease: No Hx Heart Murmur: No Hx Peripheral Vascular Disease: No - Central Nervous System Hx Seizures: No Hx Psychiatric Problems: No - Gastrointestinal Hx Gastroesophageal Reflux Disease: Yes - Endocrine Hx Renal Disease: No Hx End Stage Renal Disease: No Hx Cirrhosis: No Hx Liver Disease: No Hx Hypothyroidism: No Hx Hyperthyroidism: No - Hematic Hx Anemia: Yes Hx Sickle Cell Disease: No - Other Systems Hx Obesity: Yes
[2019-06-01] MEDS: OXYTOCIN 20 UNIT/1000ML DRIP 20 UNITS/1,000 ML BAG IV SCH ×2 (18:12→19:10)
--- NOTE | 2019-06-01 18:22 | Procedure Note ---
OB Delivery Note - Delivery Date of Delivery: 06/01/19 Surgeon: BLACK FLOYD Estimated blood loss: 200cc - Vaginal Delivery presentation: vertex Delivery position: OA Intrapartum events: no care, PROM->1hr before delivery Delivery induction: oxytocin Delivery augmentation: pitocin Delivery monitor: external FHT, external uterine Route of delivery: Delivery placenta: spontaneous Delivery cord: 3 umbilical vessels Episiotomy: none Delivery laceration: none Anesthesia: intravenous Delivery comments: Infant delivered OA and placed on Mom's chest for [id number] bonding and delayed cord clamping - Infant A at 1 minute: 8 at 5 minutes: 9 Infant Gender: Female (3327gms)
[2019-06-01] MEDS ORDERED: PROMETHAZINE 25 MG RECT SUPP PR PRN (18:23)
[2019-06-01] MEDS ORDERED: diphenhydrAMINE 25 MG CAP PO PRN (18:23)
[2019-06-01] MEDS ORDERED: LANOLIN/ZINC/DIMETHICONE (LANSINOH) 7 GM TP PRN (18:23)
[2019-06-01] MEDS ORDERED: PROMETHAZINE 25 MG TAB PO PRN (18:23)
[2019-06-01] MEDS ORDERED: HYDROcodone/ACETAMINOPHEN 5-325 MG TAB PO PRN (18:23)
[2019-06-01] MEDS ORDERED: WITCH HAZEL/ GLYCERIN PAD TP PRN (18:23)
[2019-06-01] MEDS ORDERED: MAGNESIUM HYDROXIDE (MOM) ORAL LIQD UDC PO PRN (18:23)
[2019-06-01] MEDS ORDERED: ACETAMINOPHEN 325 MG TAB PO PRN (18:23)
[2019-06-01] MEDS: FERROUS SULFATE 325 MG TAB PO SCH (21:56)
[2019-06-01] MEDS: DOCUSATE SODIUM 100 MG CAP PO SCH (21:56)
[2019-06-02] MEDS: IBUPROFEN 600 MG TAB PO SCH ×4 (00:44→17:11)
[2019-06-02 05:59] LABS: Hematocrit 29.5 % (30.3-42.9); Hemoglobin 9.5 gm/dl (10.1-14.3)
--- NOTE | 2019-06-02 09:56 | Discharge Summary ---
Providers - Providers Date of Admission: 06/01/19 16:36 Date of discharge: 06/03/19 Attending physician: BLACK FLOYD Primary care physician: ELISHA GILL MD Hospitalization Reason for admission: active labor, rupture of membranes, IUP at term Delivery: Episiotomy: none Laceration: none Other procedures: none complications: none Discharge diagnosis: IUP at term delivered [place]a baby: female Hospital course: Unremarkable. Condition at discharge: Good Disposition: DC-01 TO HOME OR SELFCARE - Discharge Diagnoses (1) 38 weeks gestation of Status: Resolved (2) No care in current in third trimester Status: Chronic (3) Chronic blood loss anemia Status: Chronic (4) (normal spontaneous vaginal delivery) Status: Resolved Plan - Discharge Medications Prescriptions: Ferrous Sulfate [Feosol 325 MG tab] 325 mg PO BID #60 tablet Ibuprofen [Motrin 600 MG tab] 600 mg PO Q6HR #30 tablet Vit-Fe Fumar-FA [ Vitamin] 1 each PO QDAY #30 tablet - Provider Discharge Summary Activity: routine, no sex for 6 weeks, no heavy lifting 4 weeks, no strenuous exercise Diet: routine Instructions: routine Additional instructions: [] Smoking cessation referral if applicable(refer to patient education folder for contact #) [] Refer to [facility] Booklet Call your doctor immediately for: * Fever > 100.5 * Heavy vaginal bleeding ( >1 pad per hour) * Severe persistent headache * Shortness of breath * Reddened, hot, painful area to leg or breast * Drainage or odor from incision. * Keep incision clean and dry at all times and follow doctor's instructions regarding bathing/showering - Follow up plan Follow up: ELISHA GILL MD [Primary Care Provider] - 7 Days BLACK FLOYD MD [Staff Physician] - 6 Weeks
--- NOTE | 2019-06-02 09:56 | Progress Note ---
Assessment and Plan - Patient Problems (1) 38 weeks gestation of Onset Date: 06/01/19 Current Visit: Yes Status: Resolved (2) No care in current in third trimester Onset Date: 06/01/19 Current Visit: Yes Status: Chronic (3) Chronic blood loss anemia Onset Date: 06/01/19 Current Visit: Yes Status: Chronic (4) (normal spontaneous vaginal delivery) Onset Date: 06/02/19 Current Visit: No Status: Resolved Plan to address problem: A: S/P - PPD #1 Doing well Asymptomatic anemia - stable P: May go home tomorrow. Subjective - Subjective Date of service: 06/02/19 Principal diagnosis: s/p - PPD#1 Interval history: Pt is feeling well without complaints. Bleeding improved. Patient reports: appetite normal, voiding normally, pain well controlled, flatus, ambulating normally, no dizzy ambulation, no nauseated [place]: doing well, nursing well, bottle feeding Objective - Vital Signs Latest vital signs: Vital Signs Temp Pulse Resp BP BP BP Pulse Ox 06/02/19 07:46 98.2 F 72 20 104/54 100 06/02/19 04:35 98.7 F 62 20 109/55 100 06/01/19 23:47 98.0 F 71 20 101/64 99 06/01/19 20:40 98.9 F 89 20 117/63 99 06/01/19 19:49 78 110/58 06/01/19 19:35 97.9 F 88 20 113/65 98 06/01/19 19:34 88 113/65 06/01/19 19:19 82 112/59 06/01/19 19:04 90 117/70 06/01/19 18:49 83 116/68 06/01/19 18:34 90 117/69 06/01/19 18:10 83 134/60 06/01/19 17:39 109 H 124/70 100 06/01/19 17:29 98 H 98 06/01/19 17:24 94 H 99 06/01/19 17:19 99 H 98 06/01/19 17:14 88 97 06/01/19 17:10 83 125/62 06/01/19 17:09 85 97 06/01/19 17:04 90 99 06/01/19 16:59 100 H 99 06/01/19 16:56 97.7 F 19 06/01/19 16:54 102 H 100 06/01/19 16:49 86 97 06/01/19 16:44 91 H 99 06/01/19 16:39 92 H 126/64 100 06/01/19 16:34 98 H 100 06/01/19 16:29 101 H 100 06/01/19 16:24 78 98 06/01/19 16:19 85 99 06/01/19 16:14 85 99 06/01/19 16:11 85 110/55 06/01/19 16:09 96 H 100 06/01/19 16:04 86 98 06/01/19 15:59 94 H 98 06/01/19 15:54 82 95 06/01/19 15:49 75 97 06/01/19 15:44 78 96 06/01/19 15:39 85 98 06/01/19 15:20 83 99 06/01/19 15:15 93 H 95 06/01/19 15:10 90 95 06/01/19 15:08 80 120/58 93 06/01/19 15:05 90 98 06/01/19 15:00 97.8 F 85 20 96 06/01/19 14:55 90 97 06/01/19 14:51 84 94 06/01/19 14:50 76 96 06/01/19 14:45 87 97 06/01/19 14:40 87 97 06/01/19 14:39 89 94 06/01/19 14:35 88 98 06/01/19 14:30 94 H 100 06/01/19 14:25 80 98 06/01/19 14:20 85 98 06/01/19 14:15 98 H 100 06/01/19 14:10 86 100 06/01/19 13:58 76 88 06/01/19 13:57 101 H 98 06/01/19 13:52 82 100 06/01/19 13:47 79 96 06/01/19 13:42 86 97 06/01/19 13:37 81 99 06/01/19 13:32 82 99 06/01/19 13:28 85 87 06/01/19 13:27 84 99 06/01/19 13:22 82 98 06/01/19 13:17 75 99 06/01/19 13:14 107 H 78 L 06/01/19 13:12 74 99 06/01/19 13:07 94 H 99 06/01/19 13:02 85 97 06/01/19 12:57 74 99 06/01/19 12:52 72 97 06/01/19 12:47 75 97 06/01/19 12:42 77 99 06/01/19 12:37 69 99 06/01/19 12:32 83 97 06/01/19 12:27 80 98 06/01/19 12:22 82 98 06/01/19 12:19 82 75 L 06/01/19 12:17 78 98 06/01/19 12:15 82 125/72 06/01/19 12:12 80 98 06/01/19 12:07 87 99 06/01/19 12:02 86 98 06/01/19 11:57 84 99 06/01/19 11:53 90 142/67 06/01/19 11:52 89 100 06/01/19 11:41 98.4 F 20 Intake and Output 06/01/19 06/02/19 06/02/19 22:59 06:59 14:59 Intake Total 1120.833 Output Total 1200 300 Balance -79.167 -300 Intake: IV 1120.833 Lactated Ringers 1,000 ml 1000 @ 125 mls/hr IV DIRECT SATISH Rx#:[id number] PITOCin/NS 20 UNIT/1000ML 120.833 DRIP 20 units In 1,000 ml @ 125 mls/hr IV DIRECT SATISH Rx#:[id number] Output: Urine 1200 300 Void 1200 300 Other: Total, Output Amount 200 300 # Voids Void 1 1 Estimated Blood Loss 200 - Exam Breasts: Present: deferred Abdomen: Present: normal appearance, soft Uterus: Present: normal, firm, fundal height below umbilicus Extremities: Present: normal - Labs Labs: Abnormal lab results 06/01/19 06/01/19 06/02/19 Range/Units 10:26 10:26 05:32 Hgb 9.3 L 9.5 L (10.1-14.3) gm/dl Hct 28.4 L 29.5 L (30.3-42.9) % MCV 77 L (79-97) fl MCH 25 L (28-32) pg [place] % (Auto) 7.7 H (0.0-7.3) % Seg Neutrophils % 71.6 H (40.0-70.0) % Urine WBC (Auto) 13.0 H (0.0-6.0) /HPF Laboratory Tests 06/01/19 06/01/19 06/01/19 10:26 10:26 10:26 WBC 8.1 RBC 3.67 Hgb 9.3 L Hct 28.4 L MCV 77 L MCH 25 L MCHC 33 RDW 14.9 Plt Count 318 Lymph % (Auto) 19.3 [place] % (Auto) 7.7 H Eos % (Auto) 1.2 Baso % (Auto) 0.2 Lymph # 1.6 [place] # 0.6 Eos # 0.1 Baso # 0.0 Seg Neutrophils % 71.6 H Seg Neutrophils # 5.8 Urine Color Urine Turbidity Urine pH Ur Specific [place] Urine Protein Urine Glucose (UA) Urine Ketones Urine Blood Urine Nitrite Urine Bilirubin Urine Urobilinogen Ur Leukocyte Esterase Urine WBC (Auto) Urine RBC (Auto) U Epithel Cells (Auto) Urine Bacteria (Auto) Urine Mucus Urine Opiates Screen Presumptive negative Urine Methadone Screen Presumptive negative Ur Barbiturates Screen Presumptive negative Ur Phencyclidine Scrn Presumptive negative Ur Amphetamines Screen Presumptive negative U Benzodiazepines Scrn Presumptive negative Urine Cocaine Screen Presumptive negative U Marijuana (THC) Screen Presumptive negative Drugs of Abuse Note Disclamer Syphilis IgG Antibody Hep Bs Antigen HIV 1&2 Antibody Rapid HIV P24 Antigen Rubella IgG Antibody Immune Blood Type Antibody Screen 06/01/19 06/01/19 06/01/19 10:26 10:26 10:26 WBC RBC Hgb Hct MCV MCH MCHC RDW Plt Count Lymph % (Auto) [place] % (Auto) Eos % (Auto) Baso % (Auto) Lymph # [place] # Eos # Baso # Seg Neutrophils % Seg Neutrophils # Urine Color Urine Turbidity Urine pH Ur Specific [place] Urine Protein Urine Glucose (UA) Urine Ketones Urine Blood Urine Nitrite Urine Bilirubin Urine Urobilinogen Ur Leukocyte Esterase Urine WBC (Auto) Urine RBC (Auto) U Epithel Cells (Auto) Urine Bacteria (Auto) Urine Mucus Urine Opiates Screen Urine Methadone Screen Ur Barbiturates Screen Ur Phencyclidine Scrn Ur Amphetamines Screen U Benzodiazepines Scrn Urine Cocaine Screen U Marijuana (THC) Screen Drugs of Abuse Note Syphilis IgG Antibody Non-reactive Hep Bs Antigen Non-reactive HIV 1&2 Antibody Rapid Non react HIV P24 Antigen Non react Rubella IgG Antibody Blood Type Antibody Screen 06/01/19 06/01/19 06/02/19 10:26 10:26 05:32 WBC RBC Hgb 9.5 L Hct 29.5 L MCV MCH MCHC RDW Plt Count Lymph % (Auto) [place] % (Auto) Eos % (Auto) Baso % (Auto) Lymph # [place] # Eos # Baso # Seg Neutrophils % Seg Neutrophils # Urine Color Yellow Urine Turbidity Clear Urine pH 7.0 Ur Specific [place] 1.018 Urine Protein <15 mg/dl Urine Glucose (UA) Neg Urine Ketones Neg Urine Blood Sm Urine Nitrite Neg Urine Bilirubin Neg Urine Urobilinogen < 2.0 Ur Leukocyte Esterase Sm Urine WBC (Auto) 13.0 H Urine RBC (Auto) 18.0 U Epithel Cells (Auto) 3.0 Urine Bacteria (Auto) 1+ Urine Mucus 1+ Urine Opiates Screen Urine Methadone Screen Ur Barbiturates Screen Ur Phencyclidine Scrn Ur Amphetamines Screen U Benzodiazepines Scrn Urine Cocaine Screen U Marijuana (THC) Screen Drugs of Abuse Note Syphilis IgG Antibody Hep Bs Antigen HIV 1&2 Antibody Rapid HIV P24 Antigen Rubella IgG Antibody Blood Type B POSITIVE Antibody Screen Negative
[2019-06-02] MEDS: DOCUSATE SODIUM 100 MG CAP PO SCH (11:01)
[2019-06-02] MEDS: PRENATAL VIT27-FE FUMARATE-FOLIC ACID VIT TAB PO SCH (11:01)
[2019-06-02] MEDS: FERROUS SULFATE 325 MG TAB PO SCH (11:02)
[2019-06-02] MEDS ORDERED: MEASLES, MUMPS & RUBELLA 12,500 UNIT/0.5 ML VACCINE SUB-Q ONE (18:23)
[2019-06-02] MEDS ORDERED: TETANUS,DIPH,PERTUSS(ACELL) VACCINE 0.5 ML SYRINGE IM ONE (18:23)
[2019-06-03] MEDS: FERROUS SULFATE 325 MG TAB PO SCH ×2 (00:55→09:43)
[2019-06-03] MEDS: IBUPROFEN 600 MG TAB PO SCH ×3 (00:56→09:43)
[2019-06-03] MEDS: DOCUSATE SODIUM 100 MG CAP PO SCH ×2 (00:56→09:43)
[2019-06-03] MEDS: PRENATAL VIT27-FE FUMARATE-FOLIC ACID VIT TAB PO SCH (09:43)
[2019-06-03 14:51] VITALS: BP 115/64
== END 2019-06-03 15:00 | disposition home or self-care (01) | DRG 807 ==
LOC: TRG 09:29 → LD 11:06 → TRG 16:35 → LD 16:36 → OB 20:41
PROVIDERS: ADMIT Obstetrics & Gynecology; ATTEND Obstetrics & Gynecology
PROC: 10E0XZZ Delivery of Products of Conception, External Approach (ICD-10-PCS; principal; 2019-06-01)
PROC: 3E033VJ Introduction of Other Hormone into Peripheral Vein, Percutaneous Approach (ICD-10-PCS; 2019-06-01)
PROC: 3E0234Z Introduction of Serum, Toxoid and Vaccine into Muscle, Percutaneous Approach (ICD-10-PCS; 2019-06-02)
PROC: 3E0134Z Introduction of Serum, Toxoid and Vaccine into Subcutaneous Tissue, Percutaneous Approach (ICD-10-PCS; 2019-06-02)
DX: O42.92 Full-term premature rupture of membranes, unspecified as to length of time between rupture and onset of labor (principal); Z37.0 Single live birth; O99.02 Anemia complicating childbirth; O99.62 Diseases of the digestive system complicating childbirth; D50.0 Iron deficiency anemia secondary to blood loss (chronic); K21.9 Gastro-esophageal reflux disease without esophagitis; O99.214 Obesity complicating childbirth; E66.9 Obesity, unspecified; Z3A.38 38 weeks gestation of pregnancy; Z79.899 Other long term (current) drug therapy; Z23 Encounter for immunization
CPT/HCPCS: 36415; 80307; 81001; 85014; 85018; 85025; 86592; 86706; 86762; 86850; 86900; 86901; 87086; 87806; 88307; G0378; J0290; J0595; J2590; J3010; J3490; J7120

== ENCOUNTER 2020-12-13 00:50 | Emergency (ER) | payer MEDICAID ==
[2020-12-13 01:46] VITALS: BP 151/84
[2020-12-13] MEDS ORDERED: HYDROcodone/ACETAMINOPHEN 5-325 MG TAB PO STA (01:57)
--- NOTE | 2020-12-13 02:17 | Emergency Department Report ---
ED ENT HPI - General Chief complaint: Dental/Oral Stated complaint: FACIAL SWELLING Time Seen by Provider: 12/13/20 01:52 Source: patient Mode of arrival: Ambulatory Limitations: No Limitations - History of Present Illness MD complaint: tooth pain Location: tooth # 1 - Erosion and impaction to this region with adjacent gingival erythema and swelling Severity: mild Quality: dull Consistency: constant Improves with: none Worsens with: none - Related Data Previous Rx's Medication Instructions Recorded Last Taken Type Doxylamine Succinate/Vit B6 1 each PO BID #30 tablet. 04/18/15 Unknown Rx [Toni Hubbard 10-10 mg Tablet] Miconazole Nitrate [Miconazole 7] 100 mg VG DAILY #7 supp.vag 10/21/17 Unknown Rx Vit-Fe Fumar-FA [ 1 tab PO QDAY #30 tablet 10/21/17 Unknown Rx Vitamin] metroNIDAZOLE [Flagyl] 500 mg PO Q12HR #14 tab 10/21/17 Unknown Rx Ferrous Sulfate [Feosol 325 MG tab] 325 mg PO BID #60 tablet 05/15/18 Unknown Rx Ibuprofen [Motrin 600 MG tab] 600 mg PO Q6H #30 tablet 05/15/18 Unknown Rx Vit-Fe Fumar-FA [ 1 each PO QDAY #30 tablet 05/15/18 Unknown Rx Vitamin] Acetaminophen [Acetaminophen TAB] 650 mg PO Q6HR PRN #30 tablet 01/06/19 Unknown Rx cephALEXin [Keflex] 500 mg PO BID 10 Days #20 cap 01/06/19 Unknown Rx Ferrous Sulfate [Feosol 325 MG tab] 325 mg PO BID #60 tablet 06/02/19 Unknown Rx Ibuprofen [Motrin 600 MG tab] 600 mg PO Q6HR #30 tablet 06/02/19 Unknown Rx Vit-Fe Fumar-FA [ 1 each PO QDAY #30 tablet 06/02/19 Unknown Rx Vitamin] Amoxicillin [Amoxicillin TAB] 875 mg PO BID #20 tablet 12/13/20 Unknown Rx Chlorhexidine Mouthwash [Peridex] 15 ml MM BID #1 bottle 12/13/20 Unknown Rx Lidocaine Viscous 2% 5 ml MM Q3H PRN #120 udc 12/13/20 Unknown Rx Allergies Allergy/AdvReac Type Severity Reaction Status Date / Time No Known Allergies Allergy Verified 12/13/20 01:46 ED Dental HPI - General Chief complaint: Dental/Oral Stated complaint: FACIAL SWELLING Time Seen by Provider: 12/13/20 01:52 Source: patient Mode of arrival: Ambulatory Limitations: No Limitations - Related Data Previous Rx's Medication Instructions Recorded Last Taken Type Doxylamine Succinate/Vit B6 1 each PO BID #30 tablet.dr 04/18/15 Unknown Rx [Diclibby Dr 10-10 mg Tablet] Miconazole Nitrate [Miconazole 7] 100 mg VG DAILY #7 supp.vag 10/21/17 Unknown Rx Vit-Fe Fumar-FA [ 1 tab PO QDAY #30 tablet 10/21/17 Unknown Rx Vitamin] metroNIDAZOLE [Flagyl] 500 mg PO Q12HR #14 tab 10/21/17 Unknown Rx Ferrous Sulfate [Feosol 325 MG tab] 325 mg PO BID #60 tablet 05/15/18 Unknown Rx Ibuprofen [Motrin 600 MG tab] 600 mg PO Q6H #30 tablet 05/15/18 Unknown Rx Vit-Fe Fumar-FA [ 1 each PO QDAY #30 tablet 05/15/18 Unknown Rx Vitamin] Acetaminophen [Acetaminophen TAB] 650 mg PO Q6HR PRN #30 tablet 01/06/19 Unknown Rx cephALEXin [Keflex] 500 mg PO BID 10 Days #20 cap 01/06/19 Unknown Rx Ferrous Sulfate [Feosol 325 MG tab] 325 mg PO BID #60 tablet 06/02/19 Unknown Rx Ibuprofen [Motrin 600 MG tab] 600 mg PO Q6HR #30 tablet 06/02/19 Unknown Rx Vit-Fe Fumar-FA [ 1 each PO QDAY #30 tablet 06/02/19 Unknown Rx Vitamin] Amoxicillin [Amoxicillin TAB] 875 mg PO BID #20 tablet 12/13/20 Unknown Rx Chlorhexidine Mouthwash [Peridex] 15 ml MM BID #1 bottle 12/13/20 Unknown Rx Lidocaine Viscous 2% 5 ml MM Q3H PRN #120 udc 12/13/20 Unknown Rx Allergies Allergy/AdvReac Type Severity Reaction Status Date / Time No Known Allergies Allergy Verified 12/13/20 01:46 ED Review of Systems ROS: Stated complaint: FACIAL SWELLING Other details as noted in HPI Comment: All other systems reviewed and negative ED Past Medical Hx - Past Medical History Previous Medical History?: No Hx Hypertension: No Hx Heart Attack/AMI: No Hx Congestive Heart Failure: No Hx Diabetes: No Hx Deep Vein Thrombosis: No Hx Liver Disease: No Hx Renal Disease: No Hx Sickle Cell Disease: No Hx Seizures: No Hx Asthma: No Hx COPD: No Hx HIV: No - Surgical History Hx Pacemaker: No Hx Internal Defibrillator: No Additional Surgical History: d&c x 2 p miscarriages - Social History Smoking Status: Current Every Day Smoker Substance Use Type: Marijuana - Medications Home Medications: Home Medications Medication Instructions Recorded Confirmed Last Taken Type Doxylamine Succinate/Vit B6 1 each PO BID #30 tablet. 04/18/15 06/01/19 Unknown Rx [Toni Hubbard 10-10 mg Tablet] Miconazole Nitrate [Miconazole 7] 100 mg VG DAILY #7 supp.vag 10/21/17 06/01/19 Unknown Rx Vit-Fe Fumar-FA [ 1 tab PO QDAY #30 tablet 10/21/17 06/01/19 Unknown Rx Vitamin] metroNIDAZOLE [Flagyl] 500 mg PO Q12HR #14 tab 10/21/17 06/01/19 Unknown Rx Ferrous Sulfate [Feosol 325 MG tab] 325 mg PO BID #60 tablet 05/15/18 06/01/19 Unknown Rx Ibuprofen [Motrin 600 MG tab] 600 mg PO Q6H #30 tablet 05/15/18 06/01/19 Unknown Rx Vit-Fe Fumar-FA [ 1 each PO QDAY #30 tablet 05/15/18 06/01/19 Unknown Rx Vitamin] Acetaminophen [Acetaminophen TAB] 650 mg PO Q6HR PRN #30 tablet 01/06/19 06/01/19 Unknown Rx cephALEXin [Keflex] 500 mg PO BID 10 Days #20 cap 01/06/19 06/01/19 Unknown Rx Ferrous Sulfate [Feosol 325 MG tab] 325 mg PO BID #60 tablet 06/02/19 Unknown Rx Ibuprofen [Motrin 600 MG tab] 600 mg PO Q6HR #30 tablet 06/02/19 Unknown Rx Vit-Fe Fumar-FA [ 1 each PO QDAY #30 tablet 06/02/19 Unknown Rx Vitamin] Amoxicillin [Amoxicillin TAB] 875 mg PO BID #20 tablet 12/13/20 Unknown Rx Chlorhexidine Mouthwash [Peridex] 15 ml MM BID #1 bottle 12/13/20 Unknown Rx Lidocaine Viscous 2% 5 ml MM Q3H PRN #120 udc 12/13/20 Unknown Rx ED Physical Exam - General Limitations: No Limitations General appearance: alert, in no apparent distress - Head Head exam: Present: atraumatic, normocephalic - Eye Eye exam: Present: normal appearance - ENT ENT exam: Present: mucous membranes moist, other (Swelling and pain in impaction to the left left upper molar region with with a severely eroded care. Airway is patent tongue and uvula are midline. No lymphadenopathy. No lymphangitis. Voice is normal. No drooling.) - Neck Neck exam: Present: normal inspection - Respiratory Respiratory exam: Present: normal lung sounds bilaterally. Absent: respiratory distress - Cardiovascular Cardiovascular Exam: Present: regular rate, normal rhythm. Absent: systolic murmur, diastolic murmur, rubs, gallop - GI/Abdominal GI/Abdominal exam: Present: soft, normal bowel sounds - Extremities Exam Extremities exam: Present: normal inspection - Back Exam Back exam: Present: normal inspection - Neurological Exam Neurological exam: Present: alert, oriented X3 - Psychiatric Psychiatric exam: Present: normal affect, normal mood - Skin Skin exam: Present: warm, dry, intact, normal color. Absent: rash ED Course Vital Signs 12/13/20 01:43 Pulse Rate 87 Respiratory 18 Rate Blood Pressure 151/84 O2 Sat by Pulse 99 Oximetry Critical care attestation.: If time is entered above; I have spent that time in minutes in the direct care of this critically ill patient, excluding procedure time. ED Disposition Clinical Impression: Dentalgia, Infected dental caries Disposition: HOME / SELF CARE / HOMELESS Is pt being admited?: No Does the pt Need Aspirin: No Condition: Stable Instructions: Acute Pain, Adult, Dental Extraction, Care After, Dental Abscess Prescriptions: Amoxicillin [Amoxicillin TAB] 875 mg PO BID #20 tablet Lidocaine Viscous 2% 5 ml MM Q3H PRN #120 udc PRN Reason: Pain, Moderate (4-6) Chlorhexidine Mouthwash [Peridex] 15 ml MM BID #1 bottle Referrals: PRIMARY CARE,MD [Primary Care Provider] - 3-5 Days [facility] [Outside] - 3-5 Days
== END 2020-12-13 02:45 | disposition home or self-care (01) ==
LOC: ED 00:50
DX: K08.9 Disorder of teeth and supporting structures, unspecified (principal); K02.9 Dental caries, unspecified; F17.200 Nicotine dependence, unspecified, uncomplicated; F12.90 Cannabis use, unspecified, uncomplicated
CPT/HCPCS: 99282